=== PATIENT | female | born 1975 ===

== ENCOUNTER 2021-12-04 07:30 | Inpatient (IN) | payer OTHER ==
[~2021-12-04] VITALS: Ht 160 cm; Wt 61.2 kg
[2021-12-04] MEDS ORDERED: TAMBOCOR150 MG PO (09:30)
[2021-12-04] MEDS ORDERED: TOPROL XL50 M1 PO (09:30)
[2021-12-05] MEDS ORDERED: FLECAINIDE ACET50 MG (08:13)
== END 2021-12-07 10:21 | disposition home or self-care (01) | DRG 743 ==
LOC: OB/GYN 12-05 05:30 → O/R 12-05 05:30 → SURG 12-05 07:00 → OB/GYN 12-05 11:11
PROVIDERS: ADMIT Specialist; ATTEND Specialist
PROC: 0UT70ZZ Resection of Bilateral Fallopian Tubes, Open Approach (ICD-10-PCS; 2021-12-05)
PROC: 0UT90ZZ Resection of Uterus, Open Approach (ICD-10-PCS; principal; 2021-12-05 07:00)
DX: N80.03 Adenomyosis of the uterus (principal); N72 Inflammatory disease of cervix uteri; Z20.822 Contact with and (suspected) exposure to COVID-19